=== PATIENT | female | born 1950 | race American Indian/Alaskan Native ===

== ENCOUNTER 2017-02-11 21:10 | Observation (INO) | payer MEDICARE, OTHER ==
[2017-02-11] MEDS ORDERED: Aspirin 325 mg EC Tablets PO ONE (21:39)
[2017-02-11] MEDS ORDERED: Nitroglycerin 2% Ointment Foilpak UD TOP STA (21:39)
--- NOTE | 2017-02-11 21:44 | C.PDOC ---
History Of Present Illness A 66 y/o female c/o chest pain that is on and off since this afternoon. Pt notes that the pain happens every hour of the hour and radiation of pain to the neck and back. Pt denies SOB, sweats, fever, chills, nausea, vomiting, palpitation, lightheadedness, or any other complaints. Time Seen by Provider: 02/11/17 21:31 Chief Complaint (Nursing): Chest Pain History Per: Patient History/Exam Limitations: no limitations Onset/Duration Of Symptoms: Hrs (On and off ) Current Symptoms Are (Timing): Still Present Severity: Mild Quality: "Pain" Recent travel outside of the [place]: No Additional History Per: Patient Past Medical History Reviewed: Historical Data, Nursing Documentation, Vital Signs Vital Signs: Last Vital Signs Temp 98.5 F 02/11/17 21:16 Pulse 86 02/11/17 21:16 Resp 20 02/11/17 21:16 BP 176/92 H 02/11/17 21:16 Pulse Ox 100 02/11/17 23:36 Family History: States: Unknown Family Hx - Social History Hx Alcohol Use: No Hx Substance Use: No - Immunization History Hx Tetanus Toxoid Vaccination: No Hx Influenza Vaccination: No Hx Pneumococcal Vaccination: No Review Of Systems Except As Marked, All Systems Reviewed And Found Negative. Constitutional: Negative for: Fever, Chills, Sweats Cardiovascular: Positive for: Chest Pain. Negative for: Palpitations, Light Headedness Respiratory: Negative for: Shortness of Breath Gastrointestinal: Negative for: Nausea, Vomiting Musculoskeletal: Positive for: Neck Pain, Back Pain Physical Exam - Physical Exam Appears: Non-toxic, No Acute Distress Skin: Warm, Dry Head: Atraumatic, Normacephalic Eye(s): bilateral: Normal Inspection Ear(s): Bilateral: Normal Oral Mucosa: Moist Throat: Normal, No Exudate Chest: Symmetrical Cardiovascular: Rhythm Regular, No Murmur Respiratory: Normal Breath Sounds, No Rales, No Rhonchi, No Wheezing Gastrointestinal/Abdominal: Soft, No Tenderness Extremity: Normal ROM, No Pedal Edema, No Deformity, No Swelling Extremity: Bilateral: Normal Color And Temperature, Normal ROM Neurological/Psych: Oriented x3, Normal Speech, Normal Cognition, Other (No focal deficit) Gait: Steady ED Course And Treatment - Laboratory Results Result Diagrams: 02/11/17 22:07 02/11/17 22:07 ECG: Interpreted By Me, Viewed By Me ECG Rhythm: Sinus Rhythm ECG Interpretation: Normal Interpretation Of ECG: Old inferior wall [place] Rate From EC O2 Sat by Pulse Oximetry: 100 (RA) Pulse Ox Interpretation: Normal Medical Decision Making Medical Decision Making: Impression: 66 y/o c/o chest pain since this afternoon Plans: EKG, Blood labs, CXR, IV fluids Disposition Discussed With Dr.: Ric Campoverde Doctor Will See Patient In The: Hospital Counseled Patient/Family Regarding: Diagnosis - Disposition Disposition: HOSPITALIZED Disposition Time: 23:34 Condition: STABLE - POA Present On Arrival: None - Clinical Impression Clinical Impression: Chest pain - Scribe Statement The provider has reviewed the documentation as recorded by the Scribe Veronika baron All medical record entries made by the Scribe were at my direction and personally dictated by me. I have reviewed the chart and agree that the record accurately reflects my personal performance of the history, physical exam, medical decision making, and the department course for this patient. I have also personally directed, reviewed, and agree with the discharge instructions and disposition.
[2017-02-11 22:14] LABS: MEAN CELL VOLUME 92.6 fL (81.0-99.0); MEAN CORPUSCULAR HEMOGLOBIN 30.7 pg (27.0-31.0); MEAN CORPUSCULAR HGB CONC 33.1 g/dL (33.0-37.0); RED CELL DISTRIBUTION WIDTH 14.1 % (11.5-14.5); WHITE BLOOD COUNT 10.8 K/uL (4.8-10.8)
[2017-02-11 22:15] LABS: BASO % 0.5 % (0.0-2.0); EOS # 0.1 K/uL (0.0-0.7); EOS % 1.1 % (0.0-4.0); LYMPH # 3.8 K/uL (1.0-4.3); LYMPH % 34.7 % (20.0-40.0); MEAN PLATELET VOLUME 10.2 fL (7.2-11.7); MONO # 0.8 K/uL (0.0-0.8); MONO % 7.7 % (0.0-10.0)
[2017-02-11] MEDS ORDERED: Nitroglycerin 2% Ointment Foilpak UD TOP ONE (22:16)
[2017-02-11 22:19] LABS: CHLORIDE 102 mmol/L (98-107); SODIUM 136 mmol/L (132-148)
[2017-02-11 22:21] LABS: GFR AFRICAN-AMERICAN > 60
[2017-02-11 22:22] LABS: ALB/GLOB RATIO 1.3 (1.0-2.1); ALKALINE PHOSPHATASE 47 U/L (38-126); AST/SGOT 43 U/L (14-36); BILIRUBIN,TOTAL 0.9 mg/dL (0.2-1.3); BLOOD UREA NITROGEN 11 mg/dL (7-17); CARBON DIOXIDE 25 mmol/L (22-30); GLUCOSE,RANDOM 122 mg/dL (65-105); TOTAL PROTEIN 8.1 g/dL (6.3-8.3)
[2017-02-11 22:23] LABS: ALT/SGPT 16 U/L (9-52); CALCIUM 8.8 mg/dl (8.6-10.4)
[2017-02-11 22:29] LABS: POTASSIUM 5.9 mmol/L (3.6-5.2)
[2017-02-11 22:42] LABS: INR 1.1; PARTIAL THROMBOPLASTIN TIME 35 SECONDS (21-34)
--- NOTE | 2017-02-12 00:47 | CP.PCM.HP ---
<Stevenson Oates - Last Filed: 02/12/17 07:56> History of Present Illness - History of Present Illness History of Present Illness: HPI: Patient is a 66 year old female, with PMHx of GERD, who presents to [facility] ED for chest pain and headache. She reports the chest pain began this afternoon after eating. She describes the pain as an intermittent, sharp "burning" sensation in her chest/epigastric region, that lasts for "ten minutes" then goes away but keeps returning ever "hour or so." She rates the pain as 6-7/10 on the severity scale at worst, 2/10 now. She also admits her heart has been beating very fast this afternoon. About two hours after the chest pain started, she began to have a headache. Pt states the pain starts in the back of her head, on both sides, that lsat instructor around her head like a vise, and terminates below her eyes. Pt states she has had similar headaches before in periods of high stress, and they normally dissipate after taking Advil. Today, the headache did not respond to two Advil, and began to throb. She states she gets these headaches "once every few months." Pt admits stressor of son with unspecified mental illness, who is acting erratically, and worrying her. She denies abdominal pain, nausea, vomiting, diaphoresis, fever, fatigue, or chills. She denies sick contacts or recent travels. PMHx: GERD PSHx: denies SHx: denies tobacco usage ever or illicit drug use; admits social wine/scotch Allergies: NKA Fam Hx: denies Meds: Vitamin D 1000 units daily Present on Admission - Present on Admission Any Indicators Present on Admission: No Review of Systems - Constitutional Constitutional: absent: Chills, Fatigue, Fever - EENT Eyes: absent: Change in Vision Ears: absent: Decreased Hearing Nose/Mouth/Throat: absent: Nasal Congestion, Sore Throat - Cardiovascular Cardiovascular: Chest Pain Past Patient History - Past Social History Smoking Status: Never Smoked - PSYCHIATRIC Hx Substance Use: No Meds Allergies/Adverse Reactions: Allergies Allergy/AdvReac Type Severity Reaction Status Date / Time No Known Allergies Allergy Verified 11/25/15 13:21 Physical Exam - Constitutional Appears: Non-toxic, No Acute Distress - Head Exam Head Exam: ATRAUMATIC, NORMOCEPHALIC - Eye Exam Eye Exam: EOMI Pupil Exam: PERRL - ENT Exam ENT Exam: Mucous Membranes Moist - Neck Exam Neck exam: Positive for: Tenderness (c4-c7). Negative for: Full Rom (decreased) Additional comments: C4-C7 Sr,Rr; paravertebral tenderness - Respiratory Exam Respiratory Exam: Clear to Auscultation Bilateral, NORMAL BREATHING PATTERN. absent: Accessory Muscle Use, Chest Wall Tenderness, Rhonchi, Wheezes - Cardiovascular Exam Cardiovascular Exam: REGULAR RHYTHM, +S1, +S2. absent: Tachycardia, Systolic Murmur - GI/Abdominal Exam GI & Abdominal Exam: Normal Bowel Sounds, Soft. absent: Tenderness - Extremities Exam Extremities exam: Positive for: normal inspection. Negative for: pedal edema, tenderness - Neurological Exam Neurological exam: Alert, Oriented x3 - Psychiatric Exam Psychiatric exam: Normal Affect - Skin Skin Exam: Dry, Normal Color, Warm Results - Vital Signs Recent Vital Signs: Last Vital Signs Temp 97.5 F L 02/11/17 23:43 Pulse 67 02/12/17 00:19 Resp 16 02/12/17 00:19 BP 143/62 02/12/17 00:19 Pulse Ox 97 02/12/17 00:19 - Labs Result Diagrams: 02/12/17 06:40 02/12/17 06:40 Assessment & Plan - Assessment and Plan (Free Text) Plan: Chest pain - R/O ACS Admit as observation to tele Normotensive, Non-tachy EKG: NSR, Rate 80, No acute ST/T wave changes, Possible old inferior wall CT, f/ u 2 additional Q6H Troponin: negative x 1, f/u 2 additional Q6H D-dimer negative Oxygen 2L PRN ASA 325mg once in ED, ASA 81mg PO daily Crestor 5mg PO HS f/u AM labs f/u TSH, HgbA1C, fasting lipid panel Tension Headache Bilateral pain, starting occipital to below eyes Tylenol 650mg PO Q4H PRN (mild) Advil 600mg PO Q4H PRN (moderate) Hyperkalemia 5.9 on initial CMP - sample hemolyzed f/u AM CMP Prophylactic measure Pepcid 20mg PO BID SCDs Heparin 5000u Q12H <Ric Campoverde P - Last Filed: 02/13/17 23:31> Results - Vital Signs Recent Vital Signs: Last Vital Signs Temp 97.9 F 02/12/17 15:26 Pulse 76 02/12/17 15:26 Resp 20 02/12/17 15:26 BP 139/77 02/12/17 15:26 Pulse Ox 100 02/12/17 15:26 - Labs Result Diagrams: 02/12/17 06:40 02/12/17 06:40 Attending/Attestation - Attestation I have personally seen and examined this patient.: Yes I have fully participated in the care of the patient.: Yes I have reviewed all pertinent clinical information: Yes
[2017-02-12 06:45] LABS: BASO # 0.1 K/uL (0.0-0.2); BASO % 0.5 % (0.0-2.0); EOS # 0.1 K/uL (0.0-0.7); EOS % 0.8 % (0.0-4.0); HEMATOCRIT 38.7 % (34.0-47.0); LYMPH # 4.2 K/uL (1.0-4.3); LYMPH % 38.8 % (20.0-40.0); MEAN CELL VOLUME 92.2 fL (81.0-99.0); MEAN CORPUSCULAR HEMOGLOBIN 30.5 pg (27.0-31.0); MONO # 0.7 K/uL (0.0-0.8); MONO % 6.8 % (0.0-10.0); RED CELL DISTRIBUTION WIDTH 14.1 % (11.5-14.5); WHITE BLOOD COUNT 10.8 K/uL (4.8-10.8)
[2017-02-12 06:58] LABS: CHLORIDE 103 mmol/L (98-107)
[2017-02-12 06:59] LABS: POTASSIUM 3.7 mmol/L (3.6-5.2); SODIUM 140 mmol/L (132-148)
[2017-02-12 07:00] LABS: CHOLESTEROL 185 mg/dL (0-199)
[2017-02-12 07:01] LABS: ALB/GLOB RATIO 1.3 (1.0-2.1); ALKALINE PHOSPHATASE 63 U/L (38-126); ALT/SGPT 16 U/L (9-52); AST/SGOT 19 U/L (14-36); BILIRUBIN,TOTAL 0.4 mg/dL (0.2-1.3); BLOOD UREA NITROGEN 10 mg/dL (7-17); CARBON DIOXIDE 25 mmol/L (22-30); GFR AFRICAN-AMERICAN > 60; GLUCOSE,RANDOM 100 mg/dL (65-105); PHOSPHOROUS 3.8 mg/dL (2.5-4.5)
[2017-02-12 07:02] LABS: CALCIUM 8.8 mg/dl (8.6-10.4)
[2017-02-12 07:32] LABS: THYROID STIMULATING HORMONE 3.56 mIU/L (0.46-4.68)
[2017-02-12 08:15] VITALS: RESP 20
--- NOTE | 2017-02-12 13:11 | CP.PCM.DIS ---
<Fide Ledezma - Last Filed: 02/12/17 13:34> Provider - Provider Date of Admission: 02/11/17 23:36 Attending physician: Hipolito Gonzalez DO Primary care physician: Dr. Negron Time Spent in preparation of Discharge (in minutes): 45 Hospital Course - Lab Results Lab Results: Most Recent Lab Values WBC 10.8 K/uL (4.8-10.8) 02/12/17 06:40 RBC 4.19 Mil/uL (3.80-5.20) 02/12/17 06:40 Hgb 12.8 g/dL (11.0-16.0) 02/12/17 06:40 Hct 38.7 % (34.0-47.0) 02/12/17 06:40 MCV 92.2 fL (81.0-99.0) 02/12/17 06:40 MCH 30.5 pg (27.0-31.0) 02/12/17 06:40 MCHC 33.0 g/dL (33.0-37.0) 02/12/17 06:40 RDW 14.1 % (11.5-14.5) 02/12/17 06:40 Plt Count 190 K/uL (130-400) 02/12/17 06:40 MPV 10.0 fL (7.2-11.7) 02/12/17 06:40 Neut % (Auto) 53.1 % (50.0-75.0) 02/12/17 06:40 Lymph % (Auto) 38.8 % (20.0-40.0) 02/12/17 06:40 [place] % (Auto) 6.8 % (0.0-10.0) 02/12/17 06:40 Eos % (Auto) 0.8 % (0.0-4.0) 02/12/17 06:40 Baso % (Auto) 0.5 % (0.0-2.0) 02/12/17 06:40 Neut # 5.7 K/uL (1.8-7.0) 02/12/17 06:40 Lymph # 4.2 K/uL (1.0-4.3) 02/12/17 06:40 [place] # 0.7 K/uL (0.0-0.8) 02/12/17 06:40 Eos # 0.1 K/uL (0.0-0.7) 02/12/17 06:40 Baso # 0.1 K/uL (0.0-0.2) 02/12/17 06:40 PT 11.9 SECONDS (9.7-12.2) 02/11/17 22:30 INR 1.1 02/11/17 22:30 APTT 35 SECONDS (21-34) H 02/11/17 22:30 D-Dimer, Quantitative < 200 ng/mlDDU (0-243) 02/11/17 22:30 Sodium 140 mmol/L (132-148) 02/12/17 06:40 Potassium 3.7 mmol/L (3.6-5.2) 02/12/17 06:40 Chloride 103 mmol/L (98-107) 02/12/17 06:40 Carbon Dioxide 25 mmol/L (22-30) 02/12/17 06:40 Anion Gap 16 (10-20) 02/12/17 06:40 BUN 10 mg/dL (7-17) 02/12/17 06:40 Creatinine 0.5 MG/DL (0.7-1.2) L 02/12/17 06:40 Est GFR ( Amer) > 60 02/12/17 06:40 Est GFR (Non-Af Amer) > 60 02/12/17 06:40 POC Glucose (mg/dL) 108 mg/dL (65-110) 02/12/17 06:36 Random Glucose 100 mg/dL (65-105) 02/12/17 06:40 Hemoglobin A1c 5.7 % (4.2-6.5) 02/12/17 06:40 Calcium 8.8 mg/dl (8.6-10.4) 02/12/17 06:40 Phosphorus 3.8 mg/dL (2.5-4.5) 02/12/17 06:40 Magnesium 2.0 mg/dL (1.6-2.3) 02/12/17 06:40 Total Bilirubin 0.4 mg/dL (0.2-1.3) 02/12/17 06:40 AST 19 U/L (14-36) 02/12/17 06:40 ALT 16 U/L (9-52) 02/12/17 06:40 Alkaline Phosphatase 63 U/L (38-126) 02/12/17 06:40 Troponin I < 0.0120 ng/mL (0.00-0.120) 02/12/17 06:40 Total Protein 7.0 g/dL (6.3-8.3) 02/12/17 06:40 Albumin 4.0 g/dL (3.5-5.0) 02/12/17 06:40 Globulin 3.0 gm/dL (2.2-3.9) 02/12/17 06:40 Albumin/Globulin Ratio 1.3 (1.0-2.1) 02/12/17 06:40 Triglycerides 87 mg/dL (0-149) 02/12/17 06:40 Cholesterol 185 mg/dL (0-199) 02/12/17 06:40 LDL Cholesterol Direct 97 mg/dL (0-129) 02/12/17 06:40 HDL Cholesterol 55 mg/dL (30-70) 02/12/17 06:40 TSH 3rd Generation 3.56 mIU/L (0.46-4.68) 02/12/17 06:40 - Hospital Course Hospital Course: Upon Admission 66 year old female, with PMHx of GERD, who presents to [facility] ED for chest pain and headache. She reports the chest pain began this afternoon after eating. She describes the pain as an intermittent, sharp "burning" sensation in her chest/epigastric region, that lasts for "ten minutes " then goes away but keeps returning ever "hour or so." She rates the pain as 6- 7/10 on the severity scale at worst, 2/10 now. She also admits her heart has been beating very fast this afternoon. About two hours after the chest pain started, she began to have a headache. Pt states the pain starts in the back of her head, on both sides, that liquor bridge operator around her head like a vise, and terminates below her eyes. Pt states she has had similar headaches before in periods of high stress, and they normally dissipate after taking Advil. Today, the headache did not respond to two Advil, and began to throb. She states she gets these headaches "once every few months." Pt admits stressor of son with unspecified mental illness, who is acting erratically, and worrying her. She denies abdominal pain, nausea, vomiting, diaphoresis, fever, fatigue, or chills. She denies sick contacts or recent travels. Patient was admitted to TELE. Patient had negative HAJA x 3 and EKG showed no acute ST changes. HgbA1c, Thyroid panels, and lipid panel were within normal limits. On day of discharge patient was deemed medically stable for discharge. 1) Chest pain: ACS ruled out and pain resolved 2) Tension headache: patient advised to hydrate and take OTC medications 3) Hyperkalemia: resolved Upon Discharge Patient stable for discharge as per hospitalist Dr. Gonzalez Patient to follow up with PMD Dr. Daniel Negron within 7 days. If symptoms persist or worsen patient to visit ER immediately. Instructions discussed in detail with patient who understands and agrees. Discharge Exam - Head Exam Head Exam: ATRAUMATIC, NORMOCEPHALIC - Eye Exam Eye Exam: EOMI, Normal appearance. absent: Conjunctival injection, Scleral icterus Pupil Exam: NORMAL ACCOMODATION - ENT Exam ENT Exam: Mucous Membranes Moist - Neck Exam Neck exam: Full Rom, Normal Inspection - Respiratory Exam Respiratory Exam: Clear to PA & Lateral, NORMAL BREATHING PATTERN, UNREMARKABLE. absent: Accessory Muscle Use, Rales, Rhonchi, Wheezes, Respiratory Distress - Cardiovascular Exam Cardiovascular Exam: REGULAR RHYTHM, RRR, +S1, +S2. absent: Systolic Murmur - GI/Abdominal Exam GI & Abdominal Exam: Normal Bowel Sounds, Soft. absent: Firm, Guarding, Rigid, Tenderness - Extremities Exam Extremities exam: normal capillary refill, normal inspection, pedal pulses present - Back Exam Back exam: NORMAL INSPECTION. absent: rash noted, tenderness - Neurological Exam Neurological exam: Alert, Normal Gait, Oriented x3 - Psychiatric Exam Psychiatric exam: Normal Affect, Normal Mood - Skin Skin Exam: Dry, Intact, Normal Color, Warm Discharge Plan - Follow Up Plan Condition: STABLE Disposition: HOME/ ROUTINE Instructions: Chest Pain (GEN), Viral Syndrome (GEN) Additional Instructions: Patient stable for discharge. Please follow up with primary care doctor, Dr Brandy Negron within 7 days. No new prescriptions. If symptoms continue or worsen return to emergency room as soon as possible. <Hipolito Gonzalez - Last Filed: 02/12/17 16:10> Provider - Provider Date of Admission: 02/11/17 23:36 Attending physician: Ric Campoverde MD Hospital Course - Lab Results Lab Results: Most Recent Lab Values WBC 10.8 K/uL (4.8-10.8) 02/12/17 06:40 RBC 4.19 Mil/uL (3.80-5.20) 02/12/17 06:40 Hgb 12.8 g/dL (11.0-16.0) 02/12/17 06:40 Hct 38.7 % (34.0-47.0) 02/12/17 06:40 MCV 92.2 fL (81.0-99.0) 02/12/17 06:40 MCH 30.5 pg (27.0-31.0) 02/12/17 06:40 MCHC 33.0 g/dL (33.0-37.0) 02/12/17 06:40 RDW 14.1 % (11.5-14.5) 02/12/17 06:40 Plt Count 190 K/uL (130-400) 02/12/17 06:40 MPV 10.0 fL (7.2-11.7) 02/12/17 06:40 Neut % (Auto) 53.1 % (50.0-75.0) 02/12/17 06:40 Lymph % (Auto) 38.8 % (20.0-40.0) 02/12/17 06:40 [place] % (Auto) 6.8 % (0.0-10.0) 02/12/17 06:40 Eos % (Auto) 0.8 % (0.0-4.0) 02/12/17 06:40 Baso % (Auto) 0.5 % (0.0-2.0) 02/12/17 06:40 Neut # 5.7 K/uL (1.8-7.0) 02/12/17 06:40 Lymph # 4.2 K/uL (1.0-4.3) 02/12/17 06:40 [place] # 0.7 K/uL (0.0-0.8) 02/12/17 06:40 Eos # 0.1 K/uL (0.0-0.7) 02/12/17 06:40 Baso # 0.1 K/uL (0.0-0.2) 02/12/17 06:40 PT 11.9 SECONDS (9.7-12.2) 02/11/17 22:30 INR 1.1 02/11/17 22:30 APTT 35 SECONDS (21-34) H 02/11/17 22:30 D-Dimer, Quantitative < 200 ng/mlDDU (0-243) 02/11/17 22:30 Sodium 140 mmol/L (132-148) 02/12/17 06:40 Potassium 3.7 mmol/L (3.6-5.2) 02/12/17 06:40 Chloride 103 mmol/L (98-107) 02/12/17 06:40 Carbon Dioxide 25 mmol/L (22-30) 02/12/17 06:40 Anion Gap 16 (10-20) 02/12/17 06:40 BUN 10 mg/dL (7-17) 02/12/17 06:40 Creatinine 0.5 MG/DL (0.7-1.2) L 02/12/17 06:40 Est GFR ( Amer) > 60 02/12/17 06:40 Est GFR (Non-Af Amer) > 60 02/12/17 06:40 POC Glucose (mg/dL) 108 mg/dL (65-110) 02/12/17 06:36 Random Glucose 100 mg/dL (65-105) 02/12/17 06:40 Hemoglobin A1c 5.7 % (4.2-6.5) 02/12/17 06:40 Calcium 8.8 mg/dl (8.6-10.4) 02/12/17 06:40 Phosphorus 3.8 mg/dL (2.5-4.5) 02/12/17 06:40 Magnesium 2.0 mg/dL (1.6-2.3) 02/12/17 06:40 Total Bilirubin 0.4 mg/dL (0.2-1.3) 02/12/17 06:40 AST 19 U/L (14-36) 02/12/17 06:40 ALT 16 U/L (9-52) 02/12/17 06:40 Alkaline Phosphatase 63 U/L (38-126) 02/12/17 06:40 Total Creatine Kinase 51 U/L (30-135) 02/12/17 14:38 CK-MB (Mass) 0.42 ng/mL (0.0-3.38) 02/12/17 14:38 Troponin I < 0.0120 ng/mL (0.00-0.120) 02/12/17 06:40 Troponin I, Quant < 0.0120 ng/mL (0.00-0.120) 02/12/17 14:38 Total Protein 7.0 g/dL (6.3-8.3) 02/12/17 06:40 Albumin 4.0 g/dL (3.5-5.0) 02/12/17 06:40 Globulin 3.0 gm/dL (2.2-3.9) 02/12/17 06:40 Albumin/Globulin Ratio 1.3 (1.0-2.1) 02/12/17 06:40 Triglycerides 87 mg/dL (0-149) 02/12/17 06:40 Cholesterol 185 mg/dL (0-199) 02/12/17 06:40 LDL Cholesterol Direct 97 mg/dL (0-129) 02/12/17 06:40 HDL Cholesterol 55 mg/dL (30-70) 02/12/17 06:40 TSH 3rd Generation 3.56 mIU/L (0.46-4.68) 02/12/17 06:40 Attending/Attestation - Attestation I have personally seen and examined this patient.: Yes I have fully participated in the care of the patient.: Yes I have reviewed all pertinent clinical information, including history, physical exam and plan: Yes Notes (Text): 02/12/17 16:08 Medical Attending: Patient was seen and examined by me. Agree with the above note by the resident. The patient explained the C/P had resolved. Not in any acute distress when we we saw her in the morning. We also walked her around in the hallway - she did not have chest pain or shortness of breath when she walked around. She did not need assistance. Per review of the monitoring engineer she did not have any alarming changes as we walked her around in the hallway. Cardiac enzymes were negative thank you Hipolito Gonzalez
--- NOTE | 2017-02-12 13:55 | RAD ---
PROCEDURE: CHEST RADIOGRAPH, 1 VIEW HISTORY: chest pain COMPARISON: None available. FINDINGS: LUNGS: Clear. PLEURA: No pneumothorax or pleural fluid seen. CARDIOVASCULAR: Normal. OSSEOUS STRUCTURES: No significant abnormalities. VISUALIZED UPPER ABDOMEN: Normal. OTHER FINDINGS: None. IMPRESSION: No active disease.
[2017-02-12 15:26] VITALS: BP 139/77; PULSE 76; TEMP 97.9; O2SAT 100
--- NOTE | 2017-02-12 19:26 | CARD ---
APPROVED REPORT EKG Measurement Heart [id number] <Conclusion> Normal sinus rhythm Inferior infarct, age undetermined can not be excluded. Abnormal ECG
--- NOTE | 2017-03-05 10:55 | CARD ---
APPROVED REPORT EKG Measurement Heart [id number] <Conclusion> Normal sinus rhythm Inferior infarct, age undetermined can not be excluded. Abnormal ECG
== END 2017-02-12 15:36 | disposition home or self-care (01) ==
LOC: C.ER 21:10 → C.9E 23:36 → C.5T 23:50
PROVIDERS: ADMIT Internal Medicine; ATTEND Internal Medicine
DX: R07.89 Other chest pain (principal); G44.209 Tension-type headache, unspecified, not intractable; E87.5 Hyperkalemia; K21.9 Gastro-esophageal reflux disease without esophagitis
CPT/HCPCS: 36415; 71010; 80053; 80061; 82948; 83036; 83735; 84100; 84443; 84484; 85025; 85378; 85610; 85730; 93005; 99285; G0378; J1644

== ENCOUNTER 2017-08-04 15:51 | Emergency (ER) | payer MEDICARE ==
[2017-08-04] MEDS ORDERED: Sodium Chloride 0.9% 1,000 ML IV ONE (16:22)
--- NOTE | 2017-08-04 16:35 | C.PDOC ---
History Of Present Illness 66 y/o female presents to ED c/o lower abdominal and pelvic pain for the past week. Notes that she is taking Macrobid prescribed by her PMD for UTI. No fever , n/v/d, or other complaints. Time Seen by Provider: 08/04/17 16:14 Chief Complaint (Nursing): Female Genitourinary History Per: Patient History/Exam Limitations: no limitations Onset/Duration Of Symptoms: Days Current Symptoms Are (Timing): Still Present Location Of Pain/Discomfort: Suprapubic Radiation Of Pain To:: None Quality Of Discomfort: "Pain" Exacerbating Factors: None Alleviating Factors: None Recent travel outside of the [place]: No Additional History Per: Patient Abnormal Vaginal Bleeding: No Past Medical History Reviewed: Historical Data, Nursing Documentation, Vital Signs Vital Signs: Last Vital Signs Temp 97.8 F 08/04/17 16:15 Pulse 85 08/04/17 16:15 Resp 20 08/04/17 16:15 BP 160/81 H 08/04/17 16:15 Pulse Ox 100 08/04/17 17:33 - Medical History PMH: Denies: Chronic Kidney Disease Family History: States: Unknown Family Hx - Social History Hx Alcohol Use: No Hx Substance Use: No - Immunization History Hx Tetanus Toxoid Vaccination: No Hx Influenza Vaccination: No Hx Pneumococcal Vaccination: No Review Of Systems Except As Marked, All Systems Reviewed And Found Negative. Constitutional: Negative for: Fever, Chills Gastrointestinal: Positive for: Abdominal Pain. Negative for: Nausea, Vomiting , Diarrhea, Constipation Genitourinary: Positive for: Pelvic Pain. Negative for: Dysuria, Frequency, Hematuria, Vaginal Discharge, Vaginal Bleeding Physical Exam - Physical Exam Appears: Non-toxic, No Acute Distress Skin: Normal Color, Warm, Dry Head: Atraumatic, Normacephalic Eye(s): bilateral: Normal Inspection Oral Mucosa: Moist Neck: Supple Chest: Symmetrical Cardiovascular: Rhythm Regular, No Murmur Respiratory: Normal Breath Sounds, No Rales, No Rhonchi, No Wheezing Gastrointestinal/Abdominal: Soft, No Tenderness, No Guarding, No Rebound Back: No CVA Tenderness Extremity: Normal ROM, No Pedal Edema Neurological/Psych: Oriented x3, Normal Speech ED Course And Treatment - Laboratory Results Result Diagrams: 08/04/17 16:44 08/04/17 16:44 Lab Interpretation: Normal O2 Sat by Pulse Oximetry: 100 Pulse Ox Interpretation: Normal - CT Scan/US No standard instances Other Rad Studies (CT/US): Read By Radiologist, Radiology Report Reviewed CT/US Interpretation: FINDINGS: LOWER THORAX: Unremarkable. LIVER: Unremarkable. No gross lesion or ductal dilatation. GALLBLADDER AND BILE DUCTS : Peripherally calcified gallstones seen within gallbladder lumen. No mural thickening or pericholecystic fluid. PANCREAS: Unremarkable. No gross lesion or ductal dilatation. SPLEEN: Unremarkable. ADRENALS: Unremarkable. No mass. KIDNEYS AND URETERS: Unremarkable. No hydronephrosis. No solid mass. VASCULATURE: Unremarkable. No aortic aneurysm. BOWEL: Unremarkable. No obstruction. No gross mural thickening. APPENDIX: Unremarkable. Normal appendix. PERITONEUM: Unremarkable. No free fluid. No free air. LYMPH NODES: Unremarkable. No enlarged lymph nodes. BLADDER: Unremarkable. REPRODUCTIVE : Normal uterus. BONES: No acute fracture. OTHER FINDINGS: None. IMPRESSION: Cholelithiasis without evidence of cholecystitis. Otherwise unremarkable examination. Progress Note: Blood work, UA, Abd & Pelvis CT ordered and reviewed. Patient was given IV fluids. Disposition Counseled Patient/Family Regarding: Studies Performed, Diagnosis, Need For Followup - Disposition Referrals: Tristen Negron MD [Staff Provider] - Disposition: HOME/ ROUTINE Disposition Time: 17:30 Condition: STABLE Additional Instructions: Follow up with your PMD for further evaluation Prescriptions: Naproxen [Naprosyn] 1 tab PO BID PRN #25 tab PRN Reason: Pain Instructions: Pelvic Pain in Women (ED) Forms: [employer] (Honduran) - POA Present On Arrival: None - Clinical Impression Clinical Impression: Pelvic pain in female - PA / STAMP PRESS OPERATOR / Resident Statement MD/DO has reviewed & agrees with the documentation as recorded. - Scribe Statement The provider has reviewed the documentation as recorded by the Eulaibbree Negron All medical record entries made by the Marisol were at my direction and personally dictated by me. I have reviewed the chart and agree that the record accurately reflects my personal performance of the history, physical exam, medical decision making, and the department course for this patient. I have also personally directed, reviewed, and agree with the discharge instructions and disposition.
[2017-08-04 16:52] LABS: BASO % 0.3 % (0.0-2.0); EOS # 0.1 K/uL (0.0-0.7); EOS % 1.1 % (0.0-4.0); HEMATOCRIT 39.3 % (34.0-47.0); LYMPH # 2.1 K/uL (1.0-4.3); LYMPH % 24.7 % (20.0-40.0); MEAN CELL VOLUME 93.1 fL (81.0-99.0); MEAN CORPUSCULAR HEMOGLOBIN 30.8 pg (27.0-31.0); MEAN CORPUSCULAR HGB CONC 33.1 g/dL (33.0-37.0); MEAN PLATELET VOLUME 10.2 fL (7.2-11.7); MONO # 0.5 K/uL (0.0-0.8); MONO % 6.4 % (0.0-10.0); RED CELL DISTRIBUTION WIDTH 13.9 % (11.5-14.5); WHITE BLOOD COUNT 8.5 K/uL (4.8-10.8)
--- NOTE | 2017-08-04 17:03 | CT ---
PROCEDURE: CT Abdomen and Pelvis without intravenous contrast HISTORY: Pain COMPARISON: None. TECHNIQUE: Without contrast.. Contrast Dose: 0 Radiation dose: Total exam DLP = 577.28 mGy-cm. This CT exam was performed using one or more of the following dose reduction techniques: Automated exposure control, adjustment of the mA and/or kV according to patient size, and/or use of iterative reconstruction technique. FINDINGS: LOWER THORAX: Unremarkable. LIVER: Unremarkable. No gross lesion or ductal dilatation. GALLBLADDER AND BILE DUCTS: Peripherally calcified gallstones seen within gallbladder lumen. No mural thickening or pericholecystic fluid. PANCREAS: Unremarkable. No gross lesion or ductal dilatation. SPLEEN: Unremarkable. ADRENALS: Unremarkable. No mass. KIDNEYS AND URETERS: Unremarkable. No hydronephrosis. No solid mass. VASCULATURE: Unremarkable. No aortic aneurysm. BOWEL: Unremarkable. No obstruction. No gross mural thickening. APPENDIX: Unremarkable. Normal appendix. PERITONEUM: Unremarkable. No free fluid. No free air. LYMPH NODES: Unremarkable. No enlarged lymph nodes. BLADDER: Unremarkable. REPRODUCTIVE: Normal uterus BONES: No acute fracture. OTHER FINDINGS: None. IMPRESSION: Cholelithiasis without evidence of cholecystitis. Otherwise unremarkable examination.
[2017-08-04 17:05] LABS: CALCIUM 8.3 mg/dl (8.6-10.4); GFR AFRICAN-AMERICAN > 60
[2017-08-04 17:11] LABS: RBC URINE < 1 /hpf (0-3); URINE BILIRUBIN NEGATIVE (NEGATIVE); URINE BLOOD NEGATIVE (NEGATIVE); URINE COLOR Yellow (YELLOW); URINE GLUCOSE (UA) NORMAL (Normal); URINE KETONE NEGATIVE (NEGATIVE); URINE LEUKOCYTE ESTERASE NEG Leu/uL (Negative); URINE PROTEIN NEGATIVE (NEGATIVE); URINE UROBILINOGEN NORMAL mg/dL (0.2-1.0); WBC URINE 1 /hpf (0-5)
[2017-08-04 17:15] LABS: ALB/GLOB RATIO 1.4 (1.0-2.1); ALKALINE PHOSPHATASE 54 U/L (38-126); ALT/SGPT 18 U/L (9-52); AST/SGOT 46 U/L (14-36); BILIRUBIN,TOTAL 1.3 mg/dL (0.2-1.3); BLOOD UREA NITROGEN 9 mg/dL (7-17); CARBON DIOXIDE 22 mmol/L (22-30); CHLORIDE 102 mmol/L (98-107); GLUCOSE,RANDOM 150 mg/dL (65-105); SODIUM 134 mmol/L (132-148); TOTAL PROTEIN 7.7 g/dL (6.3-8.3)
[2017-08-04] MEDS ORDERED: Sodium Chloride 0.9% 1,000 ML ONE (17:38)
[2017-08-04 18:26] VITALS: BP 133/74; PULSE 70; RESP 19; TEMP 97.4; O2SAT 98
== END 2017-08-04 18:27 | disposition home or self-care (01) ==
LOC: C.ER 15:51
DX: R10.2 Pelvic and perineal pain (principal)
CPT/HCPCS: 74176; 80053; 81001; 83690; 85025; 87086; 99285; J7040

== ENCOUNTER 2017-10-10 21:33 | Emergency (ER) | payer MEDICARE ==
[2017-10-10 21:45] VITALS: TEMP 97.4
--- NOTE | 2017-10-10 21:55 | C.PDOC ---
History Of Present Illness 67 year old female presents to the ER with a complaint of throat discomfort since earlier today associated with neck soreness. Patient has not taken anything for it at home, reports positive sick contacts at home. Denies fever or chills. Time Seen by Provider: 10/10/17 21:47 Chief Complaint (Nursing): Chest Pain History Per: Patient History/Exam Limitations: no limitations Onset/Duration Of Symptoms: Hrs Current Symptoms Are (Timing): Still Present Modifying Factors: None Exacerbating Factors: None Alleviating Factors: None Recent travel outside of the [place]: No Past Medical History Reviewed: Historical Data, Nursing Documentation, Vital Signs Vital Signs: Last Vital Signs Temp 97.4 F L 10/10/17 21:42 Pulse 63 10/10/17 23:36 Resp 14 10/10/17 23:36 BP 151/63 H 10/10/17 23:36 Pulse Ox 99 10/10/17 23:36 Family History: States: Unknown Family Hx - Social History Hx Alcohol Use: No Hx Substance Use: No - Immunization History Hx Tetanus Toxoid Vaccination: No Hx Influenza Vaccination: No Hx Pneumococcal Vaccination: No Review Of Systems Constitutional: Negative for: Fever, Chills ENT: Positive for: Throat Pain Cardiovascular: Negative for: Chest Pain, Palpitations Respiratory: Negative for: Shortness of Breath Gastrointestinal: Negative for: Nausea, Vomiting Musculoskeletal: Positive for: Neck Pain Physical Exam - Physical Exam Appears: Non-toxic, No Acute Distress, Other (anxious) Skin: Normal Color, Warm, Dry Head: Atraumatic, Normacephalic Eye(s): bilateral: Normal Inspection Oral Mucosa: Moist Tongue: Other (Dry coated) Throat: Normal, No Erythema, No Exudate, Other (Normal tonsils) Neck: Normal, Supple, Other (Normal bland thyroid) Lymphatic: Adenopathy (Cervical) Chest: Symmetrical, No Tenderness Cardiovascular: Rhythm Regular Respiratory: Normal Breath Sounds, No Rales, No Rhonchi, No Wheezing Gastrointestinal/Abdominal: Soft, No Tenderness Neurological/Psych: Oriented x3, Normal Speech ED Course And Treatment - Laboratory Results Result Diagrams: 10/10/17 22:03 10/10/17 22:03 Lab Interpretation: Abnormal (mild elev WBC, NOT L-shifted) ECG: Interpreted By Ks ECG Rhythm: Sinus Rhythm ECG Interpretation: Normal Rate From EC O2 Sat by Pulse Oximetry: 98 Pulse Ox Interpretation: Normal - Radiology CXR: Interpreted by Me CXR Interpretation: Yes: No Acute Disease Progress Note: lopressor 50 mg, motrin 600 PO Reevaluation Time: 23:24 Reassessment Condition: Improved Medical Decision Making Medical Decision Making: neck/throat discomfort normal exam, dry coated tongue bland thyroid and normal TSH mild HTN treated symptomaticaly with lopressor 50 PO with good effect. Disposition Doctor Will See Patient In The: Office Counseled Patient/Family Regarding: Studies Performed, Diagnosis - Disposition Referrals: [facility] [Outside] Tristen Negron MD [Staff Provider] - Disposition: HOME/ ROUTINE Disposition Time: 23:25 Condition: GOOD Additional Instructions: normal evaluation mild hypertension- re-evaluate w your PMD Continue Motrin 400-600 mg every 6 hours as needed for throat discomfort Dayquil/Nyquil for viral syndrome symptoms (very common this month) Follow-up with your PMD as needed in 2-3 days for re-evaluation. Instructions: Viral Syndrome (ED) Forms: [employer] (Amharic) - Clinical Impression Clinical Impression: Throat discomfort - Scribe Statement The provider has reviewed the documentation as recorded by the Scribe Glen Quintero All medical record entries made by the Scribe were at my direction and personally dictated by me. I have reviewed the chart and agree that the record accurately reflects my personal performance of the history, physical exam, medical decision making, and the department course for this patient. I have also personally directed, reviewed, and agree with the discharge instructions and disposition.
[2017-10-10 22:08] LABS: BASO % 0.4 % (0.0-2.0); EOS # 0.1 K/uL (0.0-0.7); EOS % 0.8 % (0.0-4.0); HEMOGLOBIN 12.8 g/dL (11.0-16.0); LYMPH # 3.8 K/uL (1.0-4.3); LYMPH % 31.9 % (20.0-40.0); MEAN CELL VOLUME 92.6 fL (81.0-99.0); MEAN CORPUSCULAR HEMOGLOBIN 30.6 pg (27.0-31.0); MONO % 8.4 % (0.0-10.0); NEUT % 58.5 % (50.0-75.0); RBC 4.17 Mil/uL (3.80-5.20); RED CELL DISTRIBUTION WIDTH 13.8 % (11.5-14.5); WHITE BLOOD COUNT 11.9 K/uL (4.8-10.8)
[2017-10-10 22:11] LABS: SQUAMOUS EPITHIAL < 1 /hpf (0-5); URINE BILIRUBIN NEGATIVE (NEGATIVE); URINE BLOOD NEGATIVE (NEGATIVE); URINE CLARITY Clear (Clear); URINE COLOR Straw (YELLOW); URINE GLUCOSE (UA) NORMAL (Normal); URINE LEUKOCYTE ESTERASE TRACE Leu/uL (Negative); URINE NITRATE NEGATIVE (NEGATIVE); URINE PROTEIN NEGATIVE (NEGATIVE); URINE UROBILINOGEN NORMAL mg/dL (0.2-1.0)
[2017-10-10 22:20] LABS: ALB/GLOB RATIO 1.2 (1.0-2.1); ALT/SGPT 15 U/L (9-52); AST/SGOT 22 U/L (14-36); BLOOD UREA NITROGEN 10 mg/dL (7-17); CALCIUM 8.9 mg/dl (8.6-10.4); GFR AFRICAN-AMERICAN > 60; GFR NON-AFRICAN AMERICAN > 60
[2017-10-10 22:35] LABS: B-TYPE NATRIURETIC PEPTIDE 95.9 pg/mL (0-900)
[2017-10-10 22:41] LABS: INR 1.1; PARTIAL THROMBOPLASTIN TIME 34 SECONDS (21-34); PROTHROMBIN TIME 12.3 SECONDS (9.7-12.2)
[2017-10-10 22:43] LABS: D DIMER < 200 ng/mlDDU (0-243)
[2017-10-10 23:36] VITALS: BP 151/63; PULSE 63; RESP 14
[2017-10-11 00:26] VITALS: O2SAT 98
--- NOTE | 2017-10-11 08:01 | RAD ---
Chest x-ray single frontal view History: Shortness of breath. Comparison: 02/11/2017 Findings: Mild venous congestion. Mild patchy increased markings at left lung base. Tortuous aorta. Mild cardiomegaly. Impression: Mild venous congestion. Mild patchy increased markings at left lung base. Tortuous aorta. Mild cardiomegaly.
--- NOTE | 2017-10-11 17:12 | CARD ---
APPROVED REPORT EKG Measurement Heart [id number] MA [id number] [id number] <Conclusion> Normal sinus rhythm Possible Left atrial enlargement Inferior infarct, age undetermined Abnormal ECG
== END 2017-10-10 23:39 | disposition home or self-care (01) ==
LOC: C.ER 21:33
DX: R07.0 Pain in throat (principal)

== ENCOUNTER 2017-11-15 06:14 | Day surgery (SDC) | payer MEDICARE ==
[2017-11-15] MEDS ORDERED: Propofol 10 mg/ml Inj (20 ML) ONE (07:54)
[2017-11-15] MEDS ORDERED: Midazolam 2 MG/2 ML VIAL ONE (07:54)
[2017-11-15] MEDS ORDERED: Lidocaine Hydrochloride 5 ML INJ ONE (08:01)
--- NOTE | 2017-11-15 08:39 | CP.SDSHP ---
Same Day Surgery H & P - History Proposed Procedure: EGD Pre-Op Diagnosis: Dyspepsia, GERD - Previous Medical/Surgical History Previous Surgical History: None - Allergies Allergies: Allergies No Known Allergies Allergy (Verified 10/10/17 21:45) - Current Medications Current Medications: See reconciliation sheet - Physical Exam General Appearance: WD WN female in NAD Vital Signs: Vital Signs 11/15/17 06:39 Temperature 97.5 F L Pulse Rate 73 Respiratory 19 Rate Blood Pressure 167/92 H O2 Sat by Pulse 98 Oximetry Mental Status: Alert & Oriented x3 Neuro: WNL Heart: WNL Lungs: WNL GI: WNL - {Optional Preform as Required} Abdomen: WNL - Impression Impression: Dyspepsia, GERD Pt. Evaluated Today:Candidate for Anesthesia & Procedure: Yes - Date & Time Date: 11/15/17 Time: 08:39 Short Stay Discharge - Short Stay Discharge Admitting Diagnosis/Reason for Visit: DYSPEPSIA Disposition: HOME/ ROUTINE
[2017-11-15] MEDS ORDERED: Lactated Ringer's 1,000 ML IV ONE (08:40)
[2017-11-15 09:42] VITALS: RESP 11; O2SAT 100
[2017-11-15 09:44] VITALS: PULSE 67
[2017-11-15 10:05] VITALS: BP 157/66; TEMP 97.5
== END 2017-11-15 10:02 | disposition home or self-care (01) ==
LOC: C.ENDO 06:14
PROVIDERS: ATTEND Internal Medicine Gastroenterology
DX: K30 Functional dyspepsia (principal); K29.70 Gastritis, unspecified, without bleeding
CPT/HCPCS: 43239; 88305; 88312; 88313; 88342; J2250; J2704; J3010; J7120

== ENCOUNTER 2018-03-13 21:51 | Emergency (ER) | payer MEDICARE ==
[2018-03-13 22:01] VITALS: RESP 18; O2SAT 100
--- NOTE | 2018-03-13 22:23 | C.PDOC ---
History Of Present Illness 67 year old female presents to the ED c/o dizziness, nausea. Patient states she suffers from acid reflux and fell the same this time. Patient reports she has had couple of episodes of nauseousness. Patient denies fever, chill, vomiting, diarrhea, back pain. Time Seen by Provider: 03/13/18 22:22 Chief Complaint (Nursing): Dizziness/Lightheaded History Per: Patient History/Exam Limitations: no limitations Onset/Duration Of Symptoms: Days Current Symptoms Are (Timing): Still Present Activity At Onset Of Symptoms: Standing Associated Symptoms Preceding Syncopal Episode: Other (nausea) Seizure Or Post-ictal Symptoms: None Fall Associated With With Symptoms: No Severity: None Recent travel outside of the [place]: No Additional History Per: Patient - Symptoms Of CVA Recent Aspirin Use: No Current Coumadin Use?: No Recent Head Trauma: No Past Medical History Reviewed: Historical Data, Nursing Documentation, Vital Signs Vital Signs: Last Vital Signs Temp 98.1 F 03/13/18 21:59 Pulse 74 03/13/18 23:02 Resp 18 03/13/18 23:02 BP 158/70 H 03/13/18 23:02 Pulse Ox 100 03/13/18 23:34 - Medical History PMH: Colonic Polyps, Diverticulitis, Gastritis Denies: Chronic Kidney Disease Surgical History: Endoscopy Family History: States: Unknown Family Hx - Social History Hx Alcohol Use: No Hx Substance Use: No - Immunization History Hx Tetanus Toxoid Vaccination: No Hx Influenza Vaccination: No Hx Pneumococcal Vaccination: No Review Of Systems Constitutional: Negative for: Fever, Chills Cardiovascular: Negative for: Chest Pain, Palpitations Respiratory: Negative for: Cough, Shortness of Breath Gastrointestinal: Positive for: Nausea, Abdominal Pain. Negative for: Vomiting Genitourinary: Negative for: Dysuria, Hematuria Musculoskeletal: Negative for: Back Pain Skin: Negative for: Rash Neurological: Positive for: Dizziness. Negative for: Headache Psych: Negative for: Anxiety Physical Exam - Physical Exam Appears: Non-toxic, No Acute Distress Skin: Warm, Dry Head: Normacephalic Eye(s): bilateral: Normal Inspection Oral Mucosa: Moist Neck: Supple Chest: Symmetrical Cardiovascular: Rhythm Regular Respiratory: No Rales, No Rhonchi, No Wheezing Gastrointestinal/Abdominal: Soft, Tenderness (mild epigastric), No Guarding, No Rebound Back: Normal Inspection Extremity: No Tenderness, No Swelling Extremity: Bilateral: Atraumatic, Normal Color And Temperature, Normal ROM Neurological/Psych: Oriented x3, Normal Speech Gait: Steady ED Course And Treatment - Laboratory Results Result Diagrams: 03/13/18 22:45 03/13/18 22:45 ECG: Interpreted By Me, Viewed By Me ECG Rhythm: Sinus Rhythm (68), Nonspecific Changes O2 Sat by Pulse Oximetry: 100 (ON RA) Pulse Ox Interpretation: Normal - Radiology CXR: Interpreted by Me, Viewed By Me Progress Note: Plan: - EKG. - Labs. - protonix 40 mg IVP. - IV fluis. - Zofran 4 mg IVP. - Ua Reevaluation Time: 00:25 Reassessment Condition: Improved Disposition Counseled Patient/Family Regarding: Studies Performed, Diagnosis, Need For Followup, Rx Given - Disposition Referrals: Tristen Negron MD [Primary Care Provider] - Disposition: HOME/ ROUTINE Disposition Time: 22:23 Condition: FAIR Additional Instructions: Please return if symptoms recur Prescriptions: Ondansetron ODT [Zofran ODT] 1 odt PO BID PRN #6 odt PRN Reason: Nausea/Vomiting Sucralfate [Carafate] 1 gm PO QID #20 tab Instructions: Acid Reflux (GERD), Adolescent (DC), Nausea and Vomiting, Adult ( DC) Forms: [employer] (Japanese) - Clinical Impression Clinical Impression: GERD (gastroesophageal reflux disease), Nausea - Scribe Statement The provider has reviewed the documentation as recorded by the Scribe James Pereira All medical record entries made by the Scribe were at my direction and personally dictated by me. I have reviewed the chart and agree that the record accurately reflects my personal performance of the history, physical exam, medical decision making, and the department course for this patient. I have also personally directed, reviewed, and agree with the discharge instructions and disposition.
[2018-03-13] MEDS ORDERED: Sodium Chloride 0.9% 1,000 ML IV ONE (22:24)
[2018-03-13] MEDS ORDERED: Sodium Chloride 0.9% 1,000 ML ONE (22:35)
[2018-03-13 22:50] LABS: BASO % 0.5 % (0.0-2.0); EOS # 0.1 K/uL (0.0-0.7); EOS % 0.9 % (0.0-4.0); HEMOGLOBIN 13.1 g/dL (11.0-16.0); LYMPH % 32.1 % (20.0-40.0); MEAN CORPUSCULAR HEMOGLOBIN 30.9 pg (27.0-31.0); MEAN CORPUSCULAR HGB CONC 33.9 g/dL (33.0-37.0); MEAN PLATELET VOLUME 10.6 fL (7.2-11.7); MONO # 0.6 K/uL (0.0-0.8); MONO % 6.8 % (0.0-10.0); NEUT # 5.5 K/uL (1.8-7.0); NEUT % 59.7 % (50.0-75.0); NRBC % 0.1 % (0.0-2.0); RBC 4.24 Mil/uL (3.80-5.20); WHITE BLOOD COUNT 9.2 K/uL (4.8-10.8)
[2018-03-13 22:51] LABS: SQUAMOUS EPITHIAL 1 /hpf (0-5); URINE BILIRUBIN NEGATIVE (NEGATIVE); URINE BLOOD NEGATIVE (NEGATIVE); URINE CLARITY Clear (Clear); URINE COLOR Yellow (YELLOW); URINE GLUCOSE (UA) NORMAL (Normal); URINE LEUKOCYTE ESTERASE NEG Leu/uL (Negative); URINE PROTEIN NEGATIVE (NEGATIVE); URINE UROBILINOGEN NORMAL mg/dL (0.2-1.0)
[2018-03-13 22:58] LABS: INR 1.2; PROTHROMBIN TIME 12.8 SECONDS (9.7-12.2)
[2018-03-13 23:07] LABS: ALB/GLOB RATIO 1.4 (1.0-2.1); ALBUMIN 4.3 g/dL (3.5-5.0); ALT/SGPT 18 U/L (9-52); AST/SGOT 27 U/L (14-36); BLOOD UREA NITROGEN 7 mg/dL (7-17); CALCIUM 9.3 mg/dl (8.6-10.4); GFR AFRICAN-AMERICAN > 60; GFR NON-AFRICAN AMERICAN > 60; LIPASE 123 U/L (23-300)
[2018-03-14 00:30] VITALS: BP 151/66; PULSE 72; TEMP 97.9
--- NOTE | 2018-03-14 19:51 | CARD ---
APPROVED REPORT EKG Measurement Heart [id number] 150P49 [id number] <Conclusion> Normal sinus rhythm with sinus arrhythmia Inferior infarct, age undetermined Abnormal ECG
== END 2018-03-14 00:54 | disposition home or self-care (01) ==
LOC: SUPCPDRO 21:51 → C.ER 21:51
DX: K21.9 Gastro-esophageal reflux disease without esophagitis (principal); R11.0 Nausea
CPT/HCPCS: 80053; 81001; 83690; 84484; 85025; 85610; 85730; 93005; 96374; 96375; 99285; C9113; J2405; J7030

== ENCOUNTER 2018-06-06 20:26 | Emergency (ER) | payer MEDICARE ==
[2018-06-06 20:32] VITALS: PULSE 79; RESP 16; TEMP 97.6; O2SAT 100
[2018-06-06 21:34] VITALS: BP 149/56
--- NOTE | 2018-06-06 21:43 | C.PDOC ---
Time Seen by Provider: 06/06/18 21:14 Chief Complaint (Nursing): High Blood Pressure Past Medical History Vital Signs: Last Vital Signs Temp 97.6 F 06/06/18 20:29 Pulse 79 06/06/18 20:29 Resp 16 06/06/18 20:29 BP 149/56 L 06/06/18 21:34 Pulse Ox 100 06/06/18 20:29 - Medical History PMH: Colonic Polyps, Diverticulitis, Gastritis Denies: Chronic Kidney Disease Surgical History: Endoscopy Family History: States: Unknown Family Hx - Social History Hx Alcohol Use: No Hx Substance Use: No - Immunization History Hx Tetanus Toxoid Vaccination: No Hx Influenza Vaccination: No Hx Pneumococcal Vaccination: No ED Course And Treatment O2 Sat by Pulse Oximetry: 100 Medical Decision Making Medical Decision Making: anxiety false elevated BP home monitor "lots of problems @ home" anxiety reduction and opt f/u extensively educated w poor insight. Disposition Doctor Will See Patient In The: Office Counseled Patient/Family Regarding: Studies Performed, Diagnosis - Disposition Disposition: HOME/ ROUTINE Disposition Time: 21:43 Condition: GOOD - Clinical Impression Clinical Impression: Anxiety about health
--- NOTE | 2018-06-07 03:10 | C.PDOC ---
History Of Present Illness 67 year old female presents to the ER with a complaint of feeling tired and anxious, she checked his blood pressure at home and noticed it was elevated which concerned her and prompted visit. Patient has been seen here over the past few months for the similar complaints. She also complains of her chronic trapezius discomfort but refuses to take motrin or apply ice packs. denies fever, chills, chest pain, or SOB. Time Seen by Provider: 06/06/18 21:14 Chief Complaint (Nursing): High Blood Pressure History Per: Patient History/Exam Limitations: no limitations Onset/Duration Of Symptoms: Days Current Symptoms Are (Timing): Still Present Associated Symptoms: denies: Chest Pain, Dyspnea, Dizziness, Blurred Vision, Focal Weakness, Headache Quality Of Symptoms: Asymptomatic Exacerbating Factor(s): Pos: None Recent travel outside of the [place]: No Past Medical History Reviewed: Historical Data, Nursing Documentation, Vital Signs Vital Signs: Last Vital Signs Temp 97.6 F 06/06/18 20:29 Pulse 79 06/06/18 20:29 Resp 16 06/06/18 20:29 BP 149/56 L 06/06/18 21:34 Pulse Ox 100 06/07/18 03:15 - Medical History PMH: Colonic Polyps, Diverticulitis, Gastritis Denies: Chronic Kidney Disease Surgical History: Endoscopy Family History: States: Unknown Family Hx - Social History Hx Alcohol Use: No Hx Substance Use: No - Immunization History Hx Tetanus Toxoid Vaccination: No Hx Influenza Vaccination: No Hx Pneumococcal Vaccination: No Review Of Systems Constitutional: Positive for: Other (tired). Negative for: Fever, Chills Cardiovascular: Negative for: Chest Pain, Palpitations Respiratory: Negative for: Cough, Shortness of Breath Gastrointestinal: Negative for: Nausea, Vomiting Musculoskeletal: Positive for: Other (Trapezius pain) Skin: Negative for: Rash Neurological: Negative for: Weakness, Numbness Psych: Positive for: Anxiety Physical Exam - Physical Exam Appears: Non-toxic, Other (Anxious) Skin: Normal Color, Warm, Dry Head: Atraumatic, Normacephalic Eye(s): bilateral: Normal Inspection Oral Mucosa: Moist Neck: Normal, No Midline Cervical Tenderness, No Paracervical Tenderness, Supple Chest: Symmetrical, No Tenderness Cardiovascular: Rhythm Regular Respiratory: Normal Breath Sounds, No Rales, No Rhonchi, No Wheezing Gastrointestinal/Abdominal: Soft, No Tenderness Back: No Vertebral Tenderness, No Paraspinal Tenderness Extremity: Normal ROM (x4) Neurological/Psych: Oriented x3, Normal Speech ED Course And Treatment O2 Sat by Pulse Oximetry: 100 Disposition - Disposition Referrals: [facility] [Outside] [facility] [Outside] [facility] [Outside] Tristen Negron MD [Staff Provider] - Disposition: HOME/ ROUTINE Condition: GOOD Additional Instructions: anxiety and stress-reducing techniques outpatient follow-up with [facility] as needed normal labs tests in past 2 months in ED- no need to repeat lab tests today. Instructions: Anxiety, Adult (DC) Forms: [employer] (Bermudian) - Clinical Impression Clinical Impression: Anxiety about health - Scribe Statement The provider has reviewed the documentation as recorded by the Scribbree Quintero All medical record entries made by the Scribe were at my direction and personally dictated by me. I have reviewed the chart and agree that the record accurately reflects my personal performance of the history, physical exam, medical decision making, and the department course for this patient. I have also personally directed, reviewed, and agree with the discharge instructions and disposition.
== END 2018-06-06 22:20 | disposition home or self-care (01) ==
LOC: C.ER 20:26
DX: F41.9 Anxiety disorder, unspecified (principal)